=== PATIENT | female | born 1970 | race Caucasian/White ===

== ENCOUNTER 2025-04-13 08:36 | Outpatient (CLI) | payer BC | END 2025-04-13 08:37 | disposition home or self-care (01) | LOC: SCSMRI 08:36 | PROVIDERS: ATTEND Orthopaedic Surgery | DX: S83.512A Sprain of anterior cruciate ligament of left knee, initial encounter (principal); S83.412A Sprain of medial collateral ligament of left knee, initial encounter; S83.422A Sprain of lateral collateral ligament of left knee, initial encounter; S80.02XA Contusion of left knee, initial encounter; M25.462 Effusion, left knee; M79.89 Other specified soft tissue disorders; M89.8X6 Other specified disorders of bone, lower leg ==